=== PATIENT | female | born 1955 | race Caucasian/White ===

== ENCOUNTER 2017-01-20 04:38 | Emergency (ER) | payer OTHER ==
--- NOTE | 2017-01-20 05:02 | ED Physician Documentation ---
Sore Throat/Dental Pain - HISTORIAN Historian: patient - HPI Stated Complaint: Sore Throat Chief Complaint: Sore Throat Associated Symptoms: fever, chills, sore throat Further Comments: yes (61 year old female patient presents with sore throat which started today. States she has been using chloraseptic spray.) - ROS CONST: no problems CVS/RESP: none GI/: denies: nausea, vomiting MS/SKIN/LYMPH: denies: muscle aches, rash, leg swelling, ankle swelling, other NEURO/PSYCH: none - PAST HX Past History: none Allergies/Adverse Reactions: Allergies Allergy/AdvReac Type Severity Reaction Status Date / Time codeine [Codeine] Allergy Intermediate stomach Verified 01/20/17 04:44 upset Penicillins Allergy Intermediate Hives Verified 01/20/17 04:44 cephalexin monohydrate Allergy Mild Hives Verified 01/20/17 04:44 [From Keflex] Sulfa (Sulfonamide Allergy Mild swelling Verified 01/20/17 04:44 Antibiotics) [Sulfa(Sulfonamide Antibiotics)] tetracaine [Tetracaine] Allergy Mild Hives Verified 01/20/17 04:44 erythromycin base Allergy swelling Verified 01/20/17 04:44 [Erythromycin Base] tramadol Allergy itching Verified 01/20/17 04:44 aspirin AdvReac Abdominal Verified 01/20/17 04:44 Pain Home Medications: Ambulatory Orders Medication Instructions Recorded Azithromycin [Zithromax] 250 mg PO DAILY #6 tablet 01/20/17 - SOCIAL HX Smoking History: cigarettes - FAMILY HX Family History: No - VITAL SIGNS Vital Signs: Vital Signs Temp Pulse Resp BP Pulse Ox 99.1 F 82 20 166/72 92 01/20/17 04:40 01/20/17 05:06 01/20/17 05:06 01/20/17 05:06 01/20/17 05:06 - REVIEWED ASSESSMENTS Nursing Assessment Reviewed: Yes Vitals Reviewed: Yes ED Results Lab/Radiology - Lab Results Lab Results: Lab Results 01/20/17 04:45 Group A Strep Screen Positive H (NEGATIVE) - Orders Orders: ED Orders Category Date Time Status GRP A STREP SCREEN Routine Lab 01/20/17 04:45 Completed Sore throat Physical Exam - EXAM General Appearance: mild distress Head/Neck: head nml inspection, trachea midline, no lymphadenopathy, thyroid nml , neck nml inspection Mouth/Throat: lips nml, gums nml, voice nml, no drooling, no air way problems, no thrush, membranes nml, pharyngeal erythema, tonsillar exudate Respiratory: no resp. distress, breath sounds nml CVS: reg. rate & rhythm, heart sounds nml Abdomen: soft, no organomegaly, normal bowel sounds, no abdominal bruit, no distension Skin: normal color, warm/dry, NR, INT, PAL, DR Neuro/Psych: oriented x3, mood/affect nml Discharge Clincal Impression: Strep pharyngitis Prescriptions: Azithromycin [Zithromax] 250 mg PO DAILY #6 tablet Referrals: Primary Doctor,No [Primary Care Provider] - 2 Days Additional Instructions: Chloraseptic spray or lozenges as needed for throat pain. Warm salt water gargles as needed pain Increase your fluid intake juices, hot tea, non-caffeinated beverages If you are congested - You may want to try Vicks rub on your chest and/or feet Use a humidifier in the room where you sleep. You can also sit in a steam filled bathroom 1-2 times a day. Tylenol or Ibuprofen as needed for fever, pain and body aches. Home Medications: Ambulatory Orders Azithromycin [Zithromax] 250 mg PO DAILY #6 tablet 01/20/17 Condition: Stable Disposition: 01 HOME, SELF-CARE Decision to Admit: NO Decision Time: 05:01
[2017-01-20 05:11] VITALS: BP 166/72
== END 2017-01-20 05:06 | disposition home or self-care (01) ==
LOC: ED 04:38
DX: J02.0 Streptococcal pharyngitis (principal)
CPT/HCPCS: 87880; 99283

== ENCOUNTER 2017-05-04 10:16 | Outpatient (CLI) | payer OTHER ==
[2017-05-04 11:10] LABS: eGFR (African) > 60; eGFR (Non-African) > 60
== END 2017-05-04 10:17 ==
LOC: LAB 10:16
PROVIDERS: ATTEND Family Medicine
DX: I10 Essential (primary) hypertension (principal)
CPT/HCPCS: 36415; 80053; 80061

== ENCOUNTER 2017-05-05 09:53 | Outpatient (CLI) | payer OTHER | END 2017-05-05 09:54 | LOC: LAB 09:53 | PROVIDERS: ATTEND Family Medicine | DX: E11.9 Type 2 diabetes mellitus without complications (principal) | CPT/HCPCS: 36415; 83036 ==

== ENCOUNTER 2018-08-08 10:28 | Outpatient (CLI) | payer OTHER ==
[2018-08-08 11:24] LABS: eGFR (Non-African) > 60
== END 2018-08-08 10:30 ==
LOC: LAB 10:28
PROVIDERS: ATTEND Family Medicine
DX: Z00.00 Encounter for general adult medical examination without abnormal findings (principal); E11.9 Type 2 diabetes mellitus without complications
CPT/HCPCS: 36415; 80053; 80061; 83036

== ENCOUNTER 2019-07-10 08:37 | Outpatient (CLI) | payer OTHER | END 2019-07-10 08:42 | LOC: LAB 08:37 | PROVIDERS: ATTEND Family Medicine | DX: E11.9 Type 2 diabetes mellitus without complications (principal) | CPT/HCPCS: 36415; 83036 ==